=== PATIENT | male | born 1985 | race American Indian/Alaskan Native ===

== ENCOUNTER 2016-12-29 07:15 | Emergency (ER) | payer SELFPAY ==
[2016-12-29 07:16] VITALS: BMI 27.7
[2016-12-29 07:25] VITALS: BP 131/107; PULSE 86; RESP 16; TEMP 98; O2SAT 97
--- NOTE | 2016-12-29 07:41 | ED PDOC ---
HPI: CCC, URI, Sore Throat Time Seen by Provider: 12/29/16 07:29 Chief Complaint (Nursing): Cough, Cold, Congestion Chief Complaint (Provider): Cough History Per: Patient History/Exam Limitations: no limitations Onset/Duration Of Symptoms: Days (x2) Current Symptoms Are (Timing): Still Present Location Of Pain: denies: Throat, Headache Associated Symptoms: Cough. denies: Fever, Sore Throat Ear Symptoms: Bilateral: None Additional Complaint(s): Gil Hill is a 31 year old male, with a past medical history of asthma and bronchitis, who presents to the emergency department complaining of a cough associated with shortness of breath, nose and chest congestion onset for 2 days. Patient states its not actual shortness of breath but more due to congestion. Patient hasn't taken any medications. He denies any sore throat, chest pain, abdominal pain, fever, or headache. No further medical complaints. PMD: None provided. Past Medical History Reviewed: Historical Data, Nursing Documentation, Vital Signs Vital Signs: Last Vital Signs Temp 98 F 12/29/16 07:24 Pulse 86 12/29/16 07:24 Resp 16 12/29/16 07:24 BP 131/107 H 12/29/16 07:24 Pulse Ox 97 12/29/16 07:51 - Medical History PMH: Asthma, Bronchitis - Family History Family History: States: Unknown Family Hx - Home Medications Home Medications: Ambulatory Orders Medication Instructions Recorded Albuterol HFA [Ventolin HFA 90 1 - 2 puff IH Q4 PRN #1 unit 02/25/15 mcg/actuation (8 g)] Albuterol HFA [Ventolin HFA 90 2 puff IH [id number] #1 puff 05/26/15 mcg/actuation (8 g)] Benzonatate [Tessalon Perles] 100 mg PO BID PRN 5 Days sgl 12/29/16 - Allergies Allergies/Adverse Reactions: Allergies Allergy/AdvReac Type Severity Reaction Status Date / Time No Known Allergies Allergy Verified 12/29/16 07:31 Review of Systems ROS Statement: Except As Marked, All Systems Reviewed And Found Negative Constitutional: Negative for: Fever ENT: Positive for: Nose Congestion. Negative for: Throat Pain Cardiovascular: Negative for: Chest Pain Respiratory: Positive for: Cough, Shortness of Breath (due to congestion) Gastrointestinal: Negative for: Abdominal Pain Neurological: Negative for: Headache Physical Exam - Reviewed Nursing Documentation Reviewed: Yes Vital Signs Reviewed: Yes - Physical Exam Appears: Positive for: Well, Non-toxic, No Acute Distress Head Exam: Positive for: ATRAUMATIC, NORMAL INSPECTION, NORMOCEPHALIC Skin: Positive for: Normal Color, Warm, Dry Eye Exam: Positive for: EOMI, Normal appearance, PERRL ENT: Positive for: Normal ENT Inspection Neck: Positive for: Normal, Painless ROM, Supple Cardiovascular/Chest: Positive for: Regular Rate, Rhythm. Negative for: Murmur Respiratory: Positive for: Normal Breath Sounds. Negative for: Respiratory Distress Gastrointestinal/Abdominal: Positive for: Normal Exam, Bowel Sounds, Soft. Negative for: Tenderness, Guarding, Rebound Back: Positive for: Normal Inspection. Negative for: L CVA Tenderness, R CVA Tenderness Extremity: Positive for: Normal ROM. Negative for: Deformity, Swelling Neurologic/Psych: Positive for: Alert, Oriented - ECG ECG: Positive for: Interpreted By Me, Viewed By Me ECG Rhythm: Positive for: Normal QRS, Normal ST Segment, Sinus Rhythm O2 Sat by Pulse Oximetry: 97 (RA) Pulse Ox Interpretation: Normal - Progress ED Course And Treament: 740: Stable. AAOx3. Pain free. Tolerated PO. No pain. No dyspnea. Fu with pcp. Medical Decision Making Medical Decision Making: Initial Impression: URI Initial Plan: --EKG --Tessalon Perles 100 mg PO --Motrin Tab 600 mg PO 0741 -Upon provider evaluation patient is medically stable, and requires no further treatment in the ED at this time. Patient will be discharged with Rx for Tessalon Perles. Counseling was provided and all questions were answered regarding diagnosis. There is agreement to discharge plan. Return if symptoms persist or worsen. Scribe Attestation: Documented by Jeb Barnes, acting as a scribe for Nima Vega MD Provider Scribe Attestation: All medical record entries made by the Scribe were at my direction and personally dictated by me. I have reviewed the chart and agree that the record accurately reflects my personal performance of the history, physical exam, medical decision making, and the department course for this patient. I have also personally directed, reviewed, and agree with the discharge instructions and disposition. Disposition - Clinical Impression Clinical Impression: URI (upper respiratory infection) - Patient ED Disposition Is Patient to be Admitted: No Counseled Patient/Family Regarding: Diagnosis, Need For Followup, Rx Given - Disposition Referrals: [facility] [Outside] - 12/30/16 Disposition: Routine/Home Disposition Time: 07:41 Condition: STABLE Additional Instructions: Return if not better in 3 days. Prescriptions: Benzonatate [Tessalon Perles] 100 mg PO BID PRN 5 Days sgl PRN Reason: Cough Instructions: Upper Respiratory Infection (ED) Forms: [facility]progress (Divehi)
--- NOTE | 2016-12-29 08:21 | CARD ---
APPROVED REPORT EKG Measurement Heart [id number] OR [id number] <Conclusion> Normal sinus rhythm Possible Left atrial enlargement Borderline ECG
== END 2016-12-29 07:58 | disposition home or self-care (01) ==
LOC: H.ER 07:15
DX: J45.909 Unspecified asthma, uncomplicated (principal)

== ENCOUNTER 2017-02-15 23:58 | Emergency (ER) | payer OTHER ==
[2017-02-15 23:59] VITALS: BMI 27.7
[2017-02-16 00:09] VITALS: PULSE 94; RESP 16; TEMP 98.2; O2SAT 97
[2017-02-16 00:11] VITALS: BP 154/98
[2017-02-16] MEDS ORDERED: Albuterol-Ipratrop 3 mg / 0.5 (3 ml) UD IH STA (00:36)
--- NOTE | 2017-02-16 00:39 | ED PDOC ---
HPI: CCC, URI, Sore Throat Time Seen by Provider: 02/16/17 00:12 Chief Complaint (Nursing): Shortness Of Breath Chief Complaint (Provider): shortness of breath History Per: Patient History/Exam Limitations: no limitations Onset/Duration Of Symptoms: Days (2) Current Symptoms Are (Timing): Still Present Additional History Per: Patient Additional Complaint(s): 31 y/o male presents with shortness of breath x 2 days. Associated cough, chest congestion. Patient admits to similar symptoms in past, diagnosed with Bronchitis, states symptoms improved with albuterol inhaler but he ran out. Denies fever, nasal congestion/discharge, chest pain, palpitations, leg pain/ swelling, recent travel, sick contacts. Past Medical History Reviewed: Historical Data, Nursing Documentation, Vital Signs Vital Signs: Last Vital Signs Temp 98.2 F 02/16/17 00:07 Pulse 94 H 02/16/17 00:07 Resp 16 02/16/17 00:07 BP 154/98 H 02/16/17 00:07 Pulse Ox 97 02/16/17 00:39 - Medical History PMH: Bronchitis - Surgical History Surgical History: No Surg Hx - Family History Family History: States: Unknown Family Hx - Home Medications Home Medications: Ambulatory Orders Medication Instructions Recorded Albuterol HFA [Ventolin HFA 90 1 - 2 puff IH Q4 PRN #1 unit 02/25/15 mcg/actuation (8 g)] Albuterol HFA [Ventolin HFA 90 2 puff IH [id number] #1 puff 05/26/15 mcg/actuation (8 g)] Benzonatate [Tessalon Perles] 100 mg PO BID PRN 5 Days sgl 12/29/16 Albuterol HFA [Ventolin HFA 90 1 - 2 puff IH Q4 PRN #1 inh 02/16/17 mcg/actuation (8 g)] - Allergies Allergies/Adverse Reactions: Allergies Allergy/AdvReac Type Severity Reaction Status Date / Time No Known Allergies Allergy Verified 12/29/16 07:31 Review of Systems ROS Statement: Except As Marked, All Systems Reviewed And Found Negative Respiratory: Positive for: Cough, Shortness of Breath Physical Exam - Reviewed Nursing Documentation Reviewed: Yes Vital Signs Reviewed: Yes - Physical Exam Appears: Positive for: Well, Non-toxic, No Acute Distress Head Exam: Positive for: ATRAUMATIC, NORMAL INSPECTION, NORMOCEPHALIC Skin: Positive for: Normal Color Eye Exam: Positive for: Normal appearance ENT: Positive for: Normal ENT Inspection Cardiovascular/Chest: Positive for: Regular Rate, Rhythm Respiratory: Positive for: Wheezing (scattered expiratory). Negative for: Accessory Muscle Use, Crackles, Rales, Rhonchi Gastrointestinal/Abdominal: Positive for: Normal Exam Back: Positive for: Normal Inspection Extremity: Positive for: Normal ROM Neurologic/Psych: Positive for: Alert, Oriented - ECG ECG: Positive for: Viewed By Me (reviewed by ED attending) ECG Rhythm: Positive for: Sinus Rhythm, Nonspecific Changes O2 Sat by Pulse Oximetry: 97 Pulse Ox Interpretation: Normal - Radiology X-Ray: Viewed By Me X-Ray Interpretation: No Acute Disease - Progress ED Course And Treament: duoneb x 2, chest xray On re-eval, patient states she is feeling better. Patient educated on findings, discharged with rx Albuterol HFA. Advised follow up PMD 2-3 days. Return precautions given. Disposition - Clinical Impression Clinical Impression: Bronchitis - Patient ED Disposition Is Patient to be Admitted: No Counseled Patient/Family Regarding: Studies Performed, Diagnosis, Need For Followup, Rx Given - Disposition Referrals: [facility] [Outside] Disposition: Routine/Home Disposition Time: 01:36 Condition: IMPROVED Prescriptions: Albuterol HFA [Ventolin HFA 90 mcg/actuation (8 g)] 1 - 2 puff IH Q4 PRN #1 inh PRN Reason: Wheezing Instructions: Acute Bronchitis (ED) Forms: [employer] (Maltese)
[2017-02-16] MEDS ORDERED: Albuterol-Ipratrop 3 mg / 0.5 (3 ml) UD ONE (01:22)
--- NOTE | 2017-02-16 11:23 | RAD ---
HISTORY: cough, congestion COMPARISON: Chest radiograph dated 02/25/2015. TECHNIQUE: Chest PA and lateral FINDINGS: LUNGS: No active pulmonary disease. PLEURA: No significant pleural effusion identified. No pneumothorax apparent. CARDIOVASCULAR: Normal. OSSEOUS STRUCTURES: No significant abnormalities. VISUALIZED UPPER ABDOMEN: Normal. OTHER FINDINGS: None. IMPRESSION: No active disease.
== END 2017-02-16 01:45 | disposition home or self-care (01) ==
LOC: H.ER 23:58
DX: J40 Bronchitis, not specified as acute or chronic (principal)

== ENCOUNTER 2017-02-17 06:53 | Emergency (ER) | payer OTHER ==
[2017-02-17 06:54] VITALS: BMI 27.7
[2017-02-17] MEDS: Albuterol-Ipratrop 3 mg / 0.5 (3 ml) UD INH STA (07:16)
[2017-02-17 07:25] VITALS: TEMP 98.4; O2SAT 94
[2017-02-17] MEDS ORDERED: Albuterol-Ipratrop 3 mg / 0.5 (3 ml) UD ONE (07:27)
[2017-02-17] MEDS: Albuterol 0.083% Inhal Sol (2.5 mg/3 mL) UD INH STA (07:45)
[2017-02-17] MEDS ORDERED: Albuterol 0.083% Inhal Sol (2.5 mg/3 mL) UD ONE (08:37)
--- NOTE | 2017-02-17 09:14 | ED PDOC ---
HPI: SOB/CHF/COPD Time Seen by Provider: 02/17/17 07:20 Chief Complaint (Nursing): Shortness Of Breath History Per: Patient History/Exam Limitations: no limitations Current Symptoms Are (Timing): Still Present Initiating Event: Out Of Medications Past Medical History Reviewed: Historical Data Vital Signs: Last Vital Signs Temp 98.4 F 02/17/17 07:24 Pulse 78 02/17/17 07:24 Resp 16 02/17/17 07:24 BP 151/99 H 02/17/17 07:24 Pulse Ox 94 L 02/17/17 07:24 - Medical History PMH: Bronchitis - Family History Family History: States: Unknown Family Hx - Living Arrangements Living Arrangements: Alone - Social History Current smoker - smoking cessation education provided: Yes Alcohol: Occasional - Home Medications Home Medications: Ambulatory Orders Medication Instructions Recorded Albuterol HFA [Ventolin HFA 90 1 - 2 puff IH Q4 PRN #1 unit 02/25/15 mcg/actuation (8 g)] Albuterol HFA [Ventolin HFA 90 2 puff IH [id number] #1 puff 05/26/15 mcg/actuation (8 g)] Benzonatate [Tessalon Perles] 100 mg PO BID PRN 5 Days sgl 12/29/16 Albuterol HFA [Ventolin HFA 90 1 - 2 puff IH Q4 PRN #1 inh 02/16/17 mcg/actuation (8 g)] Albuterol Sulfate [Proair Hfa] 2 puff IH Q6H PRN #1 unit 02/17/17 - Allergies Allergies/Adverse Reactions: Allergies Allergy/AdvReac Type Severity Reaction Status Date / Time No Known Allergies Allergy Verified 12/29/16 07:31 Review of Systems ROS Statement: Except As Marked, All Systems Reviewed And Found Negative Constitutional: Negative for: Fever, Chills Cardiovascular: Positive for: Chest Pain Respiratory: Positive for: Cough, Shortness of Breath Physical Exam - Reviewed Nursing Documentation Reviewed: Yes Vital Signs Reviewed: Yes - Physical Exam Appears: Positive for: Well, Non-toxic, No Acute Distress Head Exam: Positive for: ATRAUMATIC, NORMAL INSPECTION, NORMOCEPHALIC Skin: Positive for: Normal Color, Warm, DRY Eye Exam: Positive for: EOMI, Normal appearance, PERRL ENT: Positive for: Normal ENT Inspection Neck: Positive for: Normal, Painless ROM Cardiovascular/Chest: Positive for: Regular Rate, Rhythm Respiratory: Positive for: CNT, Normal Breath Sounds Gastrointestinal/Abdominal: Positive for: Normal Exam, Bowel Sounds, Soft Back: Positive for: Normal Inspection Extremity: Positive for: Normal ROM Neurologic/Psych: Positive for: Alert, Oriented - ECG O2 Sat by Pulse Oximetry: 94 Medical Decision Making Medical Decision Making: patient continues to be without distress. Will discharge home with albuterol MDI. Disposition - Clinical Impression Clinical Impression: Bronchospasm - Patient ED Disposition Is Patient to be Admitted: No Doctor Will See Patient In The: Office Counseled Patient/Family Regarding: Diagnosis, Need For Followup, Rx Given - Disposition Referrals: [facility] [Outside] [facility] [Outside] Disposition: Routine/Home Disposition Time: 09:15 Condition: IMPROVED Prescriptions: Albuterol Sulfate [Proair Hfa] 2 puff IH Q6H PRN #1 unit PRN Reason: Cough Instructions: Bronchospasm (ED) - POA Present On Arrival: None
[2017-02-17 09:31] VITALS: BP 128/79; PULSE 88; RESP 14
== END 2017-02-17 09:29 | disposition home or self-care (01) ==
LOC: H.ER 06:53
DX: J98.01 Acute bronchospasm (principal); F17.200 Nicotine dependence, unspecified, uncomplicated; J44.9 Chronic obstructive pulmonary disease, unspecified

== ENCOUNTER 2017-03-22 09:22 | Emergency (ER) | payer SELFPAY ==
[2017-03-22 09:22] VITALS: BMI 27.7
[2017-03-22 09:43] VITALS: BP 142/62; PULSE 69; RESP 18; TEMP 97; O2SAT 98
--- NOTE | 2017-03-22 10:40 | ED PDOC ---
HPI: General Adult Time Seen by Provider: 03/22/17 10:32 Chief Complaint (Nursing): Cough, Cold, Congestion Chief Complaint (Provider): refill History Per: Patient Additional Complaint(s): 31-year-old male with history of asthma presents to emergency department requesting refill of albuterol inhaler. Patient has had mild shortness of breath for the past 2 days since running out of inhaler. He denies fever, chills , coughing or chest pain. PMD: none Past Medical History Reviewed: Historical Data, Nursing Documentation, Vital Signs Vital Signs: Last Vital Signs Temp 97 F L 03/22/17 09:41 Pulse 69 03/22/17 09:41 Resp 18 03/22/17 09:41 BP 142/62 03/22/17 09:41 Pulse Ox 98 03/22/17 11:12 - Medical History PMH: Asthma - Surgical History Surgical History: No Surg Hx - Family History Family History: States: No Known Family Hx - Living Arrangements Living Arrangements: With Family - Social History Current smoker - smoking cessation education provided: Yes (2-3 cigarettes per day) Alcohol: None Drugs: Denies - Home Medications Home Medications: Ambulatory Orders Medication Instructions Recorded Albuterol HFA [Ventolin HFA 90 1 - 2 puff IH Q4 PRN #1 unit 02/25/15 mcg/actuation (8 g)] Albuterol HFA [Ventolin HFA 90 2 puff IH [id number] #1 puff 05/26/15 mcg/actuation (8 g)] Benzonatate [Tessalon Perles] 100 mg PO BID PRN 5 Days sgl 12/29/16 Albuterol HFA [Ventolin HFA 90 1 - 2 puff IH Q4 PRN #1 inh 02/16/17 mcg/actuation (8 g)] Albuterol Sulfate [Proair Hfa] 2 puff IH Q6H PRN #1 unit 02/17/17 Albuterol HFA [Ventolin HFA 90 1 puff IH Q6 PRN #1 inhaler 03/22/17 mcg/actuation (8 g)] - Allergies Allergies/Adverse Reactions: Allergies Allergy/AdvReac Type Severity Reaction Status Date / Time No Known Allergies Allergy Verified 12/29/16 07:31 Review of Systems ROS Statement: Except As Marked, All Systems Reviewed And Found Negative Constitutional: Negative for: Fever Cardiovascular: Negative for: Chest Pain, Palpitations Respiratory: Positive for: Cough, Shortness of Breath. Negative for: SOB with Exertion Physical Exam - Reviewed Nursing Documentation Reviewed: Yes Vital Signs Reviewed: Yes - Physical Exam Appears: Positive for: Well, Non-toxic, No Acute Distress Skin: Negative for: Rash Eye Exam: Positive for: Normal appearance Cardiovascular/Chest: Positive for: Regular Rate, Rhythm Respiratory: Positive for: Normal Breath Sounds. Negative for: Wheezing, Respiratory Distress Extremity: Positive for: Normal ROM Neurologic/Psych: Positive for: Alert, Oriented - ECG O2 Sat by Pulse Oximetry: 98 Pulse Ox Interpretation: Normal Medical Decision Making Medical Decision Makin31 year old here for med refill Plan: Prescription provided for albuterol inhaler with 2 refills. Smoking cessation instructions given. Patient was referred to clinic for follow up. Disposition - Clinical Impression Clinical Impression: Asthma - Patient ED Disposition Is Patient to be Admitted: No Counseled Patient/Family Regarding: Diagnosis, Need For Followup - Disposition Referrals: [facility] [Outside] Disposition: Routine/Home Disposition Time: 10:37 Condition: STABLE Additional Instructions: Use meds as directed. Follow up with clinic as needed. Prescriptions: Albuterol HFA [Ventolin HFA 90 mcg/actuation (8 g)] 1 puff IH Q6 PRN #1 inhaler PRN Reason: Cough Instructions: Asthma (ED), Medicine Refill (ED) Forms: BRIKA (Macedonian)
== END 2017-03-22 11:27 | disposition home or self-care (01) ==
LOC: H.ER 09:22
DX: J45.909 Unspecified asthma, uncomplicated (principal)

== ENCOUNTER 2017-04-27 10:52 | Emergency (ER) | payer OTHER ==
[2017-04-27 10:53] VITALS: BMI 27.7
[2017-04-27 11:09] VITALS: TEMP 98.1; O2SAT 98
[2017-04-27] MEDS: Sodium Chloride 0.9% 1,000 ML IV STA (11:35)
--- NOTE | 2017-04-27 11:38 | ED PDOC ---
HPI: General Adult Time Seen by Provider: 04/27/17 11:31 Chief Complaint (Nursing): Abdominal Pain Chief Complaint (Provider): vomiting/diarrhea/headache History Per: Patient (31 y/o male here with for complaint of headache generalized noted upon awakening yesterday am. States he also noted abdominal discomfort N/V at same time. Has had watery diarrhea multiple episode (approx 4 episodes). Attempted use of motrin yesterday without improvement. Denies any head injury/suspicious foods. No uri/cough/fever/chills.) Past Medical History Reviewed: Historical Data, Nursing Documentation, Vital Signs Vital Signs: Last Vital Signs Temp 98.1 F 04/27/17 11:06 Pulse 91 H 04/27/17 11:06 Resp 16 04/27/17 11:06 BP 149/95 H 04/27/17 11:06 Pulse Ox 98 04/27/17 12:38 - Medical History PMH: Asthma, Bronchitis - Family History Family History: States: Unknown Family Hx - Home Medications Home Medications: Ambulatory Orders Medication Instructions Recorded Albuterol HFA [Ventolin HFA 90 1 - 2 puff IH Q4 PRN #1 unit 02/25/15 mcg/actuation (8 g)] Albuterol HFA [Ventolin HFA 90 2 puff IH [id number] #1 puff 05/26/15 mcg/actuation (8 g)] Benzonatate [Tessalon Perles] 100 mg PO BID PRN 5 Days sgl 12/29/16 Albuterol HFA [Ventolin HFA 90 1 - 2 puff IH Q4 PRN #1 inh 02/16/17 mcg/actuation (8 g)] Albuterol Sulfate [Proair Hfa] 2 puff IH Q6H PRN #1 unit 02/17/17 Albuterol HFA [Ventolin HFA 90 1 puff IH Q6 PRN #1 inhaler 03/22/17 mcg/actuation (8 g)] Famotidine [Pepcid] 20 mg PO BID #10 tab 04/27/17 - Allergies Allergies/Adverse Reactions: Allergies Allergy/AdvReac Type Severity Reaction Status Date / Time No Known Allergies Allergy Verified 12/29/16 07:31 Review of Systems ROS Statement: Except As Marked, All Systems Reviewed And Found Negative Gastrointestinal: Positive for: Vomiting, Diarrhea Neurological: Positive for: Headache Physical Exam - Reviewed Nursing Documentation Reviewed: Yes Vital Signs Reviewed: Yes - Physical Exam Appears: Positive for: Well, Non-toxic, No Acute Distress Head Exam: Positive for: ATRAUMATIC, NORMAL INSPECTION, NORMOCEPHALIC Skin: Positive for: Normal Color, Warm, DRY Eye Exam: Positive for: EOMI, Normal appearance, PERRL ENT: Positive for: Normal ENT Inspection Neck: Positive for: Normal, Painless ROM Cardiovascular/Chest: Positive for: Regular Rate, Rhythm Respiratory: Positive for: CNT, Normal Breath Sounds Gastrointestinal/Abdominal: Positive for: Normal Exam, Bowel Sounds, Soft Back: Positive for: Normal Inspection Extremity: Positive for: Normal ROM Neurologic/Psych: Positive for: Alert, Oriented - Laboratory Results Result Diagrams: 04/27/17 11:45 04/27/17 11:45 - ECG O2 Sat by Pulse Oximetry: 98 - Progress ED Course And Treament: pepcid 20 mg iv x 1 dose NS 1 liter 500ml per hour head ct: IMPRESSION: No acute intracranial findings with the overall appearance of the brain normal. Incidental note is made of polyps or cysts in the bilateral maxillary sinuses. Patient feels improved but notes mild headache. toradol 15 mg iv x 1 dose Disposition - Clinical Impression Clinical Impression: Maxillary sinus cyst, Gastroenteritis, Headache - Patient ED Disposition Is Patient to be Admitted: No - Disposition Referrals: [facility] [Outside] Chang Roberson MD [Staff Provider] - Disposition: Routine/Home Disposition Time: 13:39 Condition: FAIR Prescriptions: Famotidine [Pepcid] 20 mg PO BID #10 tab Instructions: Headache, Adult (DC), Gastroenteritis (ED) Forms: [facility] (British), [facility] ED School/Work Excuse
[2017-04-27 12:00] LABS: BASO % 0.8 % (0.0-2.0); EOS # 0.2 K/uL (0.0-0.7); EOS % 3.2 % (0.0-4.0); HEMOGLOBIN 15.1 g/dL (12.0-18.0); LYMPH # 1.6 K/uL (1.0-4.3); LYMPH % 30.5 % (20.0-40.0); MEAN CORPUSCULAR HEMOGLOBIN 30.2 pg (27.0-31.0); MEAN CORPUSCULAR HGB CONC 33.5 g/dL (33.0-37.0); MEAN PLATELET VOLUME 8.9 fl (7.2-11.7); MONO # 0.4 K/uL (0.0-0.8); MONO % 6.7 % (0.0-10.0); NEUT # 3.2 K/uL (1.8-7.0); NEUT % 58.8 % (50.0-75.0); NRBC % 0.1 % (0.0-0.0); RBC 4.99 Mil/uL (4.40-5.90); RED CELL DISTRIBUTION WIDTH 12.5 % (11.5-14.5); WHITE BLOOD COUNT 5.4 K/uL (4.8-10.8)
[2017-04-27 12:05] LABS: ALB/GLOB RATIO 1.1 (1.0-2.1); ALBUMIN 4.3 g/dL (3.5-5.0); ALT/SGPT 36 U/L (21-72); AST/SGOT 48 U/L (17-59); BLOOD UREA NITROGEN 9 mg/dl (9-20); CALCIUM 9.3 mg/dL (8.4-10.2); GFR AFRICAN-AMERICAN > 60; GFR NON-AFRICAN AMERICAN > 60; LIPASE 60 U/L (23-300)
--- NOTE | 2017-04-27 12:29 | CT ---
PROCEDURE: CT HEAD WITHOUT CONTRAST. HISTORY: headache COMPARISON: None available. TECHNIQUE: Axial computed tomography images were obtained through the head/brain without intravenous contrast. Radiation dose: Total exam DLP = 974.37 mGy-cm. This CT exam was performed using one or more of the following dose reduction techniques: Automated exposure control, adjustment of the mA and/or kV according to patient size, and/or use of iterative reconstruction technique. FINDINGS: HEMORRHAGE: No intracranial hemorrhage. BRAIN: Normal frankel-white matter differentiation and density are appreciated throughout the cerebrum and cerebellum with the brainstem appearing unremarkable as well. There is no mass effect. There is no suspicious extra-axial fluid collection and the midline brain anatomy appears diffusely unremarkable. VENTRICLES: Unremarkable. No hydrocephalus. CALVARIUM: Unremarkable. PARANASAL SINUSES: Small polyps or cysts are seen at the bilateral maxillary sinuses. MASTOID AIR CELLS: Unremarkable as visualized. No inflammatory changes. OTHER FINDINGS: None. IMPRESSION: No acute intracranial findings with the overall appearance of the brain normal. Incidental note is made of polyps or cysts in the bilateral maxillary sinuses.
[2017-04-27 14:52] VITALS: BP 140/92; PULSE 88; RESP 18
== END 2017-04-27 15:31 | disposition home or self-care (01) ==
LOC: H.ER 10:52
DX: J34.1 Cyst and mucocele of nose and nasal sinus (principal); K52.9 Noninfective gastroenteritis and colitis, unspecified
CPT/HCPCS: 70450; 80053; 83690; 85025; 96374; 96375; 99283; J1885; J7040

== ENCOUNTER 2017-06-14 09:48 | Emergency (ER) | payer OTHER ==
[2017-06-14 09:52] VITALS: BMI 27.4
[2017-06-14 09:55] VITALS: TEMP 97.7; O2SAT 98
[2017-06-14 10:21] VITALS: BP 149/92; PULSE 89; RESP 18
--- NOTE | 2017-06-14 10:46 | ED PDOC ---
HPI: Back Time Seen by Provider: 06/14/17 10:36 Chief Complaint (Nursing): Back Pain Chief Complaint (Provider): back pain History Per: Patient (31 y/o male here for evaluation of back pain since this morning upon awakening. Denies any falls. Notes pain with movement. Denies any fevers/chills/urinary difficulty. Did not take any medication prior to ED visit. Requests work note.) Past Medical History Reviewed: Historical Data, Nursing Documentation, Vital Signs Vital Signs: Last Vital Signs Temp 97.7 F 06/14/17 09:52 Pulse 89 06/14/17 10:18 Resp 18 06/14/17 10:18 BP 149/92 H 06/14/17 10:18 Pulse Ox 98 06/14/17 10:18 - Medical History PMH: Asthma, Bronchitis - Family History Family History: States: Unknown Family Hx - Home Medications Home Medications: Ambulatory Orders Medication Instructions Recorded Albuterol HFA [Ventolin HFA 90 1 - 2 puff IH Q4 PRN #1 unit 02/25/ mcg/actuation (8 g)] Albuterol HFA [Ventolin HFA 90 2 puff IH [id number] #1 puff 05/25/ mcg/actuation (8 g)] Benzonatate [Tessalon Perles] 100 mg PO BID PRN 5 Days sgl 12/29/16 Albuterol HFA [Ventolin HFA 90 1 - 2 puff IH Q4 PRN #1 inh 02/16/17 mcg/actuation (8 g)] Albuterol Sulfate [Proair Hfa] 2 puff IH Q6H PRN #1 unit 02/17/17 Albuterol HFA [Ventolin HFA 90 1 puff IH Q6 PRN #1 inhaler 03/22/17 mcg/actuation (8 g)] Famotidine [Pepcid] 20 mg PO BID #10 tab 04/27/17 Ibuprofen [Motrin] 600 mg PO Q8 PRN #15 tab 06/14/17 - Allergies Allergies/Adverse Reactions: Allergies Allergy/AdvReac Type Severity Reaction Status Date / Time No Known Allergies Allergy Verified 06/14/17 10:17 Review of Systems ROS Statement: Except As Marked, All Systems Reviewed And Found Negative Physical Exam - Reviewed Nursing Documentation Reviewed: Yes Vital Signs Reviewed: Yes - Physical Exam Appears: Positive for: Well, Non-toxic, No Acute Distress Head Exam: Positive for: ATRAUMATIC, NORMAL INSPECTION, NORMOCEPHALIC Skin: Positive for: Normal Color, Warm, DRY Eye Exam: Positive for: EOMI, Normal appearance, PERRL ENT: Positive for: Normal ENT Inspection Neck: Positive for: Normal, Painless ROM Cardiovascular/Chest: Positive for: Regular Rate, Rhythm Respiratory: Positive for: CNT, Normal Breath Sounds Gastrointestinal/Abdominal: Positive for: Normal Exam, Soft Back: Positive for: Normal Inspection, Vertebral Tenderness (minimal paralumbar tenderness noted. No spinal tenderness noted) Extremity: Positive for: Normal ROM Neurologic/Psych: Positive for: Alert, Oriented - ECG O2 Sat by Pulse Oximetry: 98 - Progress ED Course And Treament: Pateint noted resting in bed without difficulty. repeat bp noted 149/92 Disposition - Clinical Impression Clinical Impression: Low back pain - Patient ED Disposition Is Patient to be Admitted: No - Disposition Referrals: [facility] [Outside] Disposition: Routine/Home Disposition Time: 10:47 Condition: FAIR Prescriptions: Ibuprofen [Motrin] 600 mg PO Q8 PRN #15 tab PRN Reason: Pain, Moderate (4-7) Instructions: Low Back Pain (DC), High Blood Pressure in Adults Forms: [facility] (Peruvian), [facility] ED School/Work Excuse
== END 2017-06-14 11:19 | disposition home or self-care (01) ==
LOC: H.ER 09:48
DX: M54.5 Low back pain (principal)

== ENCOUNTER 2017-06-15 09:27 | Emergency (ER) | payer OTHER ==
[2017-06-15 09:27] VITALS: BMI 27.4
--- NOTE | 2017-06-15 11:04 | ED PDOC ---
HPI: Back Time Seen by Provider: 06/15/17 09:48 Chief Complaint (Nursing): Back Pain Chief Complaint (Provider): Back Pain History Per: Patient History/Exam Limitations: no limitations Onset/Duration Of Symptoms: Days (two) Current Symptoms Are (Timing): Still Present Quality Of Discomfort: Dull, Pressure Severity: Mild Previous Symptoms: Back Pain Associated Symptoms: None Additional Complaint(s): Pt presents to the ED for the second time in two days with the same complaint concerning non-traumatic left sided paraspinal tenderness that appeared when he awoke. Pt denies any and all trauma, including recent lifting, twisting or activity. Pt indicates that the 600mg tabs of IBU provided yesterday failed to yeild him the level of pain free satisfaction desired. Past Medical History Reviewed: Historical Data, Nursing Documentation, Vital Signs Vital Signs: Last Vital Signs Temp 98.0 F 06/15/17 09:33 Pulse 88 06/15/17 09:33 Resp 19 06/15/17 09:33 BP 147/93 H 06/15/17 09:33 Pulse Ox 98 06/15/17 09:33 - Medical History PMH: Asthma, Bronchitis - Family History Family History: States: Unknown Family Hx - Home Medications Home Medications: Ambulatory Orders Medication Instructions Recorded Albuterol HFA [Ventolin HFA 90 1 - 2 puff IH Q4 PRN #1 unit 02/25/15 mcg/actuation (8 g)] Albuterol HFA [Ventolin HFA 90 2 puff IH [id number] #1 puff 05/26/15 mcg/actuation (8 g)] Benzonatate [Tessalon Perles] 100 mg PO BID PRN 5 Days sgl 12/29/16 Albuterol HFA [Ventolin HFA 90 1 - 2 puff IH Q4 PRN #1 inh 02/16/17 mcg/actuation (8 g)] Albuterol Sulfate [Proair Hfa] 2 puff IH Q6H PRN #1 unit 02/17/17 Albuterol HFA [Ventolin HFA 90 1 puff IH Q6 PRN #1 inhaler 03/22/17 mcg/actuation (8 g)] Famotidine [Pepcid] 20 mg PO BID #10 tab 04/27/17 Ibuprofen [Motrin] 600 mg PO Q8 PRN #15 tab 06/14/17 - Allergies Allergies/Adverse Reactions: Allergies Allergy/AdvReac Type Severity Reaction Status Date / Time No Known Allergies Allergy Verified 06/15/17 09:47 Review of Systems ROS Statement: Except As Marked, All Systems Reviewed And Found Negative Constitutional: Negative for: Fever, Sweats, Weakness Musculoskeletal: Positive for: Back Pain Physical Exam - Reviewed Nursing Documentation Reviewed: Yes Vital Signs Reviewed: Yes - Physical Exam Appears: Positive for: Well, No Acute Distress. Negative for: Uncomfortable Head Exam: Positive for: ATRAUMATIC, NORMAL INSPECTION, NORMOCEPHALIC Skin: Positive for: Normal Color. Negative for: Diaphoresis, Rash Neck: Positive for: Normal, Painless ROM, Supple. Negative for: Decreased ROM Cardiovascular/Chest: Positive for: Regular Rate, Rhythm. Negative for: Edema, Gallop, Murmur, Bradycardia, Tachycardia, Friction Rub Respiratory: Positive for: Normal Breath Sounds. Negative for: Decreased Breath Sounds, Accessory Muscle Use, Crackles, Rales, Rhonchi, Stridor, Wheezing , Respiratory Distress Pulses-Carotid (L): 2+ Pulses-Carotid (R): 2+ Pulses-Radial (L): 2+ Pulses-Radial (R): 2+ Back: Positive for: Normal Inspection. Negative for: Vertebral Tenderness (Pt has lower back paraspinal pain on the left side without exquisite tenderness, reduced ROM or neuological symptoms or signs), Decreased ROM, Muscle Spasm - ECG O2 Sat by Pulse Oximetry: 98 Medical Decision Making Medical Decision Making: Muscular Skeletal pain without centerline tenderness or neurological defect Tx with toradol and apap discharge with referral to [facility] Disposition - Clinical Impression Clinical Impression: Muscle ache, Back pain - Patient ED Disposition Is Patient to be Admitted: No Doctor Will See Patient In The: Office Counseled Patient/Family Regarding: Diagnosis, Need For Followup - Disposition Referrals: [facility] [place] [Outside] [facility] [place] [Outside] Disposition: Routine/Home Disposition Time: 13:03 Condition: GOOD Instructions: Muscle and Bone Pain (DC) Forms: [employer] ([place]ovenian)
[2017-06-15 13:18] VITALS: BP 142/90; PULSE 75; RESP 18; TEMP 98.4; O2SAT 99
== END 2017-06-15 13:17 | disposition home or self-care (01) ==
LOC: H.ER 09:27
DX: M54.9 Dorsalgia, unspecified (principal)
CPT/HCPCS: 96372; 99283; J1885